=== PATIENT | female | born 1990 | race Two or more races ===

== ENCOUNTER 2018-11-08 18:55 | Emergency (ER) | payer OTHER ==
[~2018-11-08] VITALS: Ht 162.6 cm; Wt 59.0 kg
[2018-11-08 19:15] VITALS: BP 117/77
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
[2018-11-08] MEDS: Methocarbamol 500mg tab ORAL ONE ×2 (19:39→19:55)
[2018-11-08] MEDS ORDERED: Ketorolac 30mg Inj IM ONE (19:45)
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
--- NOTE | 2018-11-08 20:05 | NUR ---
HAND-OFF: Report given to LY Howard. pt received pain medications.
[2018-11-08] MEDS ORDERED: TYLENOL EXTRA500 MG ORAL (20:51)
[2018-11-08] MEDS ORDERED: ROBAXIN500 MG PO (20:51)
[2018-11-08] MEDS ORDERED: LIDOCAINE700 M1 TP (20:51)
[2018-11-08 21:01] VITALS: BP 115/76
--- NOTE | 2018-11-08 21:04 | NUR ---
ER DISCHARGE NOTE: Patient is cleared to be discharged per ERMD, pt is aox4, on room air, with stable vital signs. pt was given dc and prescription instructions, pt was able to verbalize understanding, pt id band removed without complications. pt is able to ambulate with steady gait. pt took all belongings.
--- NOTE | 2018-11-09 12:09 | Diagnostic Imaging Report ---
Indication: Left shoulder pain Technique: 3 views of the left shoulder Comparison: none Findings: No acute fractures. No dislocations. The joint spaces are preserved Impression: Negative
== END 2018-11-08 21:07 | disposition home or self-care (01) ==
LOC: EMR 19:46
DX: S43.402A Unspecified sprain of left shoulder joint, initial encounter (principal); V43.52XA Car driver injured in collision with other type car in traffic accident, initial encounter; Y92.410 Unspecified street and highway as the place of occurrence of the external cause; M54.2 Cervicalgia
CPT/HCPCS: 73030; 96372; 99283; J1885